=== PATIENT | female | born 1975 | race Hispanic/Latino ===

== ENCOUNTER 2018-04-22 20:09 | Emergency (ER) | payer OTHER ==
[2018-04-22 21:26] LABS: Basophils # (Auto) 0.1 K/mm3 (0.0-0.1); Basophils % (Auto) 1.3 % (0.0-1.8); Eosinophils # (Auto) 0.3 K/mm3 (0.0-0.4); Eosinophils % (Auto) 3.3 % (0.0-4.3); Hematocrit 35.5 % (30.3-42.9); Hemoglobin 11.2 gm/dl (10.1-14.3); Lymphocytes # (Auto) 1.6 K/mm3 (1.2-5.4); Lymphocytes % (Auto) 17.7 % (13.4-35.0); Mean Corpuscular HGB Conc 32 % (30-34); Mean Corpuscular Hemoglobin 26 pg (28-32); Mean Corpuscular Volume 84 fl (79-97); Monocytes # (Auto) 0.9 K/mm3 (0.0-0.8); Platelet Count 368 K/mm3 (140-440); Red Blood Count 4.24 M/mm3 (3.65-5.03); Red Cell Distribution Width 18.5 % (13.2-15.2)
[2018-04-22 21:41] LABS: BUN/Creatinine Ratio 10; Blood Urea Nitrogen 6 mg/dL (7-17); Calcium 9.1 mg/dL (8.4-10.2); Hemolysis Index 6
--- NOTE | 2018-04-22 22:29 | XRay Report ---
FINAL REPORT PROCEDURE: XR CHEST ROUTINE 2V TECHNIQUE: PA and lateral chest radiographs were obtained. CPT 25492 HISTORY: shortness of breath COMPARISON: No prior studies are available for comparison. FINDINGS: Heart: Normal. Mediastinum/Vessels: Normal. Lungs/Pleural space: No infiltrate, effusion, or pneumothorax is identified. Bony thorax: No acute osseous abnormality. Other: IMPRESSION: No radiographic evidence of acute abnormality.
--- NOTE | 2018-04-22 22:59 | Emergency Department Report ---
ED Abdominal Pain HPI - General Chief Complaint: Upper Respiratory Infection Stated Complaint: FEVER,COUGH Time Seen by Provider: 04/22/18 22:35 Source: patient Mode of arrival: Ambulatory Limitations: No Limitations - History of Present Illness Initial Comments: Ms. Wade is a very pleasant 43 yo female who presents with fever cough and left flank pain. History of pneumonia. History of UTI. Has been clean of alcohol and crack cocaine for 2 months. Positive tobacco abuse. MD Complaint: flank pain -: Gradual, week(s) (1) Location: L flank Radiation: none Migration to: no migration Severity: moderate Quality: stabbing Consistency: constant Improves With: medication (Goody's powder) Context: other (3 months ago history of walking pneumonia) Associated Symptoms: fever, chills, dysuria - Related Data Previous Rx's Medication Instructions Recorded Last Taken Type ALBUTEROL Inhaler [ProAir HFA 2 puff IH QID PRN #1 device 04/23/18 Unknown Rx Inhaler] Cephalexin [Keflex] 500 mg PO Q6HR 10 Days #40 capsule 04/23/18 Unknown Rx Allergies Allergy/AdvReac Type Severity Reaction Status Date / Time No Known Allergies Allergy Verified 04/22/18 20:20 ED Review of Systems ROS: Stated complaint: FEVER,COUGH Other details as noted in HPI Comment: All other systems reviewed and negative Constitutional: fever, malaise Respiratory: cough Cardiovascular: denies: chest pain Genitourinary: urgency, dysuria, frequency ED Past Medical Hx - Past Medical History Previous Medical History?: Yes Hx Seizures: Yes (not on meds) Additional medical history: vitamin deficency - Surgical History Past Surgical History?: Yes Additional Surgical History: gastric bypass. tubal ligation - Social History Smoking Status: Current Every Day Smoker Substance Use Type: None - Medications Home Medications: Home Medications Medication Instructions Recorded Confirmed Last Taken Type ALBUTEROL Inhaler [ProAir HFA 2 puff IH QID PRN #1 device 04/23/18 Unknown Rx Inhaler] Cephalexin [Keflex] 500 mg PO Q6HR 10 Days #40 capsule 04/23/18 Unknown Rx ED Physical Exam - General Limitations: No Limitations General appearance: alert, in no apparent distress - Head Head exam: Present: atraumatic, normocephalic - Eye Eye exam: Present: normal appearance - ENT ENT exam: Present: mucous membranes moist - Neck Neck exam: Present: normal inspection. Absent: tenderness, meningismus - Respiratory Respiratory exam: Present: normal lung sounds bilaterally. Absent: respiratory distress, wheezes, rales, rhonchi - Cardiovascular Cardiovascular Exam: Present: regular rate, normal rhythm, normal heart sounds. Absent: systolic murmur, diastolic murmur, rubs, gallop - GI/Abdominal GI/Abdominal exam: Present: soft, normal bowel sounds. Absent: distended, tenderness, guarding, rebound - Extremities Exam Extremities exam: Present: normal inspection - Back Exam Back exam: Present: normal inspection - Neurological Exam Neurological exam: Present: alert, oriented X3 - Psychiatric Psychiatric exam: Present: normal affect, normal mood - Skin Skin exam: Present: warm, dry, intact, normal color. Absent: rash ED Course Vital Signs 04/22/18 20:12 Temperature 98.7 F Pulse Rate 83 Respiratory 18 Rate Blood Pressure 153/85 O2 Sat by Pulse 97 Oximetry ED Medical Decision Making - Lab Data Result diagrams: 04/22/18 21:05 04/22/18 21:05 Laboratory Results - last 24 hr 04/22/18 04/22/18 21:05 21:05 WBC 8.9 RBC 4.24 Hgb 11.2 Hct 35.5 MCV 84 MCH 26 L MCHC 32 RDW 18.5 H Plt Count 368 Lymph % (Auto) 17.7 [place] % (Auto) 10.0 H Eos % (Auto) 3.3 Baso % (Auto) 1.3 Lymph # 1.6 [place] # 0.9 H Eos # 0.3 Baso # 0.1 Seg Neutrophils % 67.7 Seg Neutrophils # 6.0 Sodium 141 Potassium 4.4 Chloride 102.0 Carbon Dioxide 25 Anion Gap 18 BUN 6 L Creatinine 0.6 L Estimated GFR > 60 BUN/Creatinine Ratio 10 Glucose 98 Calcium 9.1 Vital Signs - 24 hr 04/22/18 20:12 Temperature 98.7 F Pulse Rate 83 Respiratory 18 Rate Blood Pressure 153/85 O2 Sat by Pulse 97 Oximetry Laboratory Results - last 24 hr 04/22/18 04/22/18 04/22/18 21:05 21:05 23:28 WBC 8.9 RBC 4.24 Hgb 11.2 Hct 35.5 MCV 84 MCH 26 L MCHC 32 RDW 18.5 H Plt Count 368 Lymph % (Auto) 17.7 [place] % (Auto) 10.0 H Eos % (Auto) 3.3 Baso % (Auto) 1.3 Lymph # 1.6 [place] # 0.9 H Eos # 0.3 Baso # 0.1 Seg Neutrophils % 67.7 Seg Neutrophils # 6.0 Sodium 141 Potassium 4.4 Chloride 102.0 Carbon Dioxide 25 Anion Gap 18 BUN 6 L Creatinine 0.6 L Estimated GFR > 60 BUN/Creatinine Ratio 10 Glucose 98 Calcium 9.1 Urine Color Yellow Urine Turbidity Cloudy Urine pH 5.0 Ur Specific [place] 1.008 Urine Protein <15 mg/dl Urine Glucose (UA) Neg Urine Ketones Neg Urine Blood Sm Urine Nitrite Pos Urine Bilirubin Neg Urine Urobilinogen < 2.0 Ur Leukocyte Esterase Lg Urine WBC (Auto) 68.0 H Urine RBC (Auto) 6.0 U Epithel Cells (Auto) 7.0 Urine Bacteria (Auto) 2+ Amorphous Crystals 2+ Urine Mucus Few - EKG Data 04/22/18 22:58 Time obtained 2057 Normal sinus rhythm rate of 80 normal axis normal intervals no ST-T signs of ischemia poor R wave progression in the anterior leads - Radiology Data Radiology results: report reviewed No acute process - Medical Decision Making Ms. Wade presents with persistent cough and acute pyelonephritis. I prescribed Keflex and albuterol MDI. Critical care attestation.: If time is entered above; I have spent that time in minutes in the direct care of this critically ill patient, excluding procedure time. ED Disposition Clinical Impression: Acute pyelonephritis, Acute bronchitis Disposition: DC-01 TO HOME OR SELFCARE Is pt being admited?: No Does the pt Need Aspirin: No Condition: Stable Instructions: Acute Bronchitis (ED), Acute Pyelonephritis (ED) Prescriptions: ALBUTEROL Inhaler [ProAir HFA Inhaler] 2 puff IH QID PRN #1 device PRN Reason: Cough Cephalexin [Keflex] 500 mg PO Q6HR 10 Days #40 capsule Referrals: [facility] [Outside] - 3-5 Days
[2018-04-23 00:25] LABS: Amorphous Crystals,Urine 2+; Bacteria,Urine 2+ /HPF (Negative); Bilirubin,Urine NEG (Negative); Blood,Urine SM (Negative); Color,Urine Yellow (Yellow); Mucus,Urine FEW /HPF; Protein,Urine <15 mg/dL mg/dL (Negative); Urobilinogen,Urine < 2.0 mg/dL (<2.0)
[2018-04-23] MEDS ORDERED: ROBITUSSIN PO ONE (00:41)
[2018-04-23] MEDS ORDERED: TYLENOL PO ONE (00:41)
[2018-04-23] MEDS ORDERED: KEFLEX PO ONE (00:41)
[2018-04-23] MEDS ORDERED: TYLENOL ONE (00:50)
[2018-04-23 01:17] VITALS: BP 136/84
== END 2018-04-23 01:16 | disposition home or self-care (01) ==
LOC: ED 20:09
DX: N10 Acute pyelonephritis (principal); J20.9 Acute bronchitis, unspecified; F17.200 Nicotine dependence, unspecified, uncomplicated; Z98.51 Tubal ligation status
CPT/HCPCS: 36415; 71046; 80048; 81001; 85025; 87040; 93005; 93010

== ENCOUNTER 2018-06-26 14:16 | Emergency (ER) | payer SELFPAY ==
[2018-06-26 14:29] VITALS: BP 141/90
[2018-06-26 16:12] LABS: Bacteria,Urine 3+ /HPF (Negative); Bilirubin,Urine NEG (Negative); Blood,Urine NEG (Negative); Color,Urine Amber (Yellow); Hyaline Casts,Urine 2 /LPF; Mucus,Urine 3+ /HPF
[2018-06-26 16:13] LABS: HCG Qualitative,Urine Negative (Negative)
[2018-06-26] MEDS ORDERED: NORCO 7.5/325 PO ONE (17:33)
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
== END 2018-06-26 18:22 | disposition home or self-care (01) ==
LOC: ED 14:16
DX: S02.2XXA Fracture of nasal bones, initial encounter for closed fracture (principal); S22.31XA Fracture of one rib, right side, initial encounter for closed fracture; J20.9 Acute bronchitis, unspecified; F17.200 Nicotine dependence, unspecified, uncomplicated; Z98.51 Tubal ligation status; Y04.0XXA Assault by unarmed brawl or fight, initial encounter; Y93.89 Activity, other specified; Y92.89 Other specified places as the place of occurrence of the external cause; Y99.8 Other external cause status
CPT/HCPCS: 81001; 81025; 99283